=== PATIENT | female | born 1985 | race Caucasian/White ===

== ENCOUNTER 2018-02-04 05:30 | Day surgery (SDC) | payer OTHER ==
[~2018-02-04] VITALS: Ht 157.5 cm; Wt 61.7 kg
[2018-02-04 06:02] LABS: HCG,QUAL RESULT NEGATIVE (NEGATIVE)
[2018-02-04] MEDS ORDERED: CEFAZOLIN 1 GM IVPB PREMIX 50 ML IV ONE (07:00)
[2018-02-04] MEDS ORDERED: LR 1,000 ML IV SCH (08:06)
[2018-02-04] MEDS ORDERED: HYDROmorphone 1 MG INJ. 1 MG/ML AMPUL IVP PRN (08:15)
[2018-02-04] MEDS ORDERED: HYDROmorphone 2 MG/ML VIAL IVP PRN ×2 (08:15)
[2018-02-04] MEDS ORDERED: MEPERIDINE HCL/PF 25 MG/ML DISP.SYRIN IVP PRN (08:15)
[2018-02-04] MEDS ORDERED: PROPOFOL 200MG/ 20ML VIAL (DIPRIVAN) IV ONE (08:45)
[2018-02-04] MEDS ORDERED: ROCURONIUM BROMIDE 10 MG/ML (ZEMURON) ONE (08:45)
[2018-02-04] MEDS ORDERED: MIDAZOLAM HCL 5 MG/ML VIAL (VERSED) IV ONE (08:45)
[2018-02-04] MEDS ORDERED: fentaNYL CITRATE/PF 100 MCG/2 ML AMP ONE (08:45)
[2018-02-04] MEDS ORDERED: ONDANSETRON HCL 4 MG/2 ML VIAL IVP PRN (08:45)
[2018-02-04] MEDS ORDERED: HYDROcodone/ACETAMIN 5-325 MG TAB (NORCO/ VICODIN) PO PRN (08:45)
[2018-02-04] MEDS ORDERED: KETOROLAC TROMETHAMINE 30 MG VIAL ONE (08:45)
[2018-02-04] MEDS ORDERED: NS IRRIG SOLN 5000 ML IR ONE (08:45)
[2018-02-04] MEDS ORDERED: NS 1000 ML IV.SOLN IV ONE (08:45)
[2018-02-04] MEDS ORDERED: SEVOFLURANE 15 MIN GAS INH ONE (08:45)
[2018-02-04] MEDS ORDERED: ONDANSETRON HCL 4 MG/2 ML VIAL ONE ×2 (08:45→11:21)
[2018-02-04] MEDS ORDERED: LR 1,000 ML IV.SOLN IV ONE (08:45)
[2018-02-04] MEDS ORDERED: OXYCODONE/ACETAMINOPHEN 5-325 TABLET PO PRN (08:45)
[2018-02-04] MEDS ORDERED: DEXAMETHASONE SOD PHOSPHATE 4 MG/ML VIAL ONE (08:45)
[2018-02-04] MEDS ORDERED: HYDROmorphone 1 MG INJ. 1 MG/ML AMPUL ONE (08:56)
[2018-02-04 09:57] VITALS: BP_SYST 110
== END 2018-02-04 12:00 | disposition home or self-care (01) ==
LOC: SDS 05:30 → SMU 05:30 → SDS 12:00
PROVIDERS: ATTEND Specialist
DX: N84.0 Polyp of corpus uteri (principal); D25.9 Leiomyoma of uterus, unspecified; N92.0 Excessive and frequent menstruation with regular cycle; Z79.899 Other long term (current) drug therapy; Z98.890 Other specified postprocedural states
CPT/HCPCS: 58561; 58563; 84703; 88305; C1819; J0690; J1100; J1170; J1885; J2250; J2405; J2704; J3010; J7030; J7120

== ENCOUNTER 2018-06-17 06:56 | Day surgery (SDC) | payer OTHER ==
[~2018-06-17] VITALS: Ht 157.5 cm; Wt 61.2 kg
[2018-06-17] MEDS ORDERED: CEFAZOLIN SOD 1 GM/ ISO 50 ML PREMIX IV ONE (10:00)
[2018-06-17] MEDS ORDERED: LR 1,000 ML IV SCH (13:10)
[2018-06-17] MEDS ORDERED: HYDROmorphone 1 MG INJ. 1 MG/ML AMPUL IVP PRN (13:15)
[2018-06-17] MEDS ORDERED: HYDROmorphone 2 MG/ML VIAL IVP PRN ×2 (13:15)
[2018-06-17] MEDS ORDERED: MEPERIDINE HCL/PF 25 MG/ML DISP.SYRIN IVP PRN (13:15)
[2018-06-17] MEDS ORDERED: HYDROcodone/ACETAMIN 5-325 MG TAB (NORCO/ VICODIN) PO PRN (13:45)
[2018-06-17] MEDS ORDERED: ONDANSETRON HCL 4 MG/2 ML VIAL IVP PRN (13:45)
[2018-06-17] MEDS ORDERED: OXYCODONE/ACETAMINOPHEN 5-325 TABLET PO PRN ×2 (13:45)
[2018-06-17] MEDS ORDERED: LR 1,000 ML IV.SOLN IV ONE (14:05)
[2018-06-17] MEDS ORDERED: ONDANSETRON HCL 4 MG/2 ML VIAL ONE ×2 (14:05→17:43)
[2018-06-17] MEDS ORDERED: MIDAZOLAM HCL 5 MG/ML VIAL (VERSED) IV ONE (14:05)
[2018-06-17] MEDS ORDERED: BUPIVACAINE /PF 0.25% 30 ML VIAL INJ ONE (14:05)
[2018-06-17] MEDS ORDERED: FUROSEMIDE 20 MG/2 ML VIAL ONE (14:05)
[2018-06-17] MEDS ORDERED: NS 1000 ML IV.SOLN IV ONE (14:05)
[2018-06-17] MEDS ORDERED: DIPHENHYDRAMINE INJ 50 MG/ML VIAL ONE (14:05)
[2018-06-17] MEDS ORDERED: METOCLOPRAMIDE HCL 10 MG/2 ML VIAL ONE (14:05)
[2018-06-17] MEDS ORDERED: fentaNYL CITRATE 250 MCG/5 ML AMP ONE (14:05)
[2018-06-17] MEDS ORDERED: DEXTROSE 50% JECT 50 ML DISP.SYRIN ONE (14:05)
[2018-06-17] MEDS ORDERED: ROPIVACAINE 0.2% (NAROPIN) PF SOLUTION 100 ML BOTTLE ONE (14:05)
[2018-06-17] MEDS ORDERED: NS IRRIG SOLN 1000 ML IR ONE (14:05)
[2018-06-17] MEDS ORDERED: KETOROLAC TROMETHAMINE 30 MG VIAL ONE (14:05)
[2018-06-17] MEDS ORDERED: PROPOFOL 200MG/ 20ML VIAL (DIPRIVAN) IV ONE (14:05)
[2018-06-17] MEDS ORDERED: SEVOFLURANE 15 MIN GAS INH ONE (14:05)
[2018-06-17] MEDS ORDERED: ROPIVACAINE HCL/PF 5 MG/ML 0.5% 30 ML VIAL ONE (14:05)
[2018-06-17] MEDS ORDERED: DEXAMETHASONE SOD PHOSPHATE 4 MG/ML VIAL ONE (14:05)
[2018-06-17] MEDS ORDERED: HYDROmorphone 1 MG INJ. 1 MG/ML AMPUL ONE (15:07)
[2018-06-17 16:07] VITALS: BP_SYST 113
== END 2018-06-17 18:25 | disposition home or self-care (01) ==
LOC: SDS 06:56 → SMU 06:57 → SDS 18:25
PROVIDERS: ATTEND Specialist
DX: N85.8 Other specified noninflammatory disorders of uterus (principal); N85.00 Endometrial hyperplasia, unspecified
CPT/HCPCS: 58552; 64488; 88307; C1727; J0690; J1100; J1170; J1200; J1885; J1940; J2250; J2405; J2704; J2765; J2795; J3010; J3490; J7030; J7120; S2900; E0190